=== PATIENT | male | born 1945 | race Caucasian/White ===

== ENCOUNTER → 2023-12-18 | Outpatient (CLI) | payer MEDICARE, SELFPAY ==
[2023-12-18 14:42] LABS: Absolute Lymphocyte Count 2.35 X10^3/uL (0.83-4.51); Basophil# 0.03 X10^3/uL; Basophil% 0.5 % (0-1); Eosinophil# 0.15 X10^3/uL; Eosinophils% 2.5 % (0-5); Hematocrit 37.6 % (40-54); Hemoglobin 11.1 g/dL (13.0-16.5); Lymphocyte # 2.35 X10^3/ul (0.83-4.51); Lymphocyte % 39.4 % (19-41); Mean Corp Hgb Conc 29.5 g/dL (32-36); Mean Corpuscular Volume 94.7 fL (80-94); Mean Platelet Vol. 12.8 fl (6.2-12.0); Monocyte# 0.44 X10^3/uL; Monocyte% 7.4 % (0-10); NRBC Flagged by Analyzer 0 % (0-5); Neutrophil # 2.96 X10^3/uL (2.7-7.7); Neutrophil % 49.7 % (47-70); Platelet Count 109 K/mm3 (150-450); RBC Distribution Width SD 55.2 fl (35.1-43.9); RET-HE 30.9 pg (30-35); Red Blood Count 3.97 M/mm3 (4.6-6.2); Reticulocyte Count 1.93 % (0.5-1.5)
[2023-12-18 14:56] LABS: Vitamin B12 606 pg/mL (211-911)
[2023-12-18 15:05] LABS: Ferritin 50 ng/mL (26-388); Iron 40 ug/dL (65-175); Iron Binding Capacity,Total 417 ug/dL (250-450); PSA,Total - Annual Screen 0.18 ng/mL (0.00-4.00)
== END | disposition home or self-care (01) ==
LOC: LABSPEC 13:12
PROVIDERS: PCP Family Medicine; Referring Provider Family Medicine; Visit Provider Family Medicine
DX: E11.51 Type 2 diabetes mellitus with diabetic peripheral angiopathy without gangrene (principal)
CPT/HCPCS: 82607; 82728; 82746; 83540; 83550; 84153; 85025; 85045; G0103